=== PATIENT | male | born 2005 | race Caucasian/White ===

== ENCOUNTER 2023-05-17 11:07 | Emergency (ER) | payer SELFPAY ==
[2023-05-17 11:22] VITALS: BP 114/66; PULSE 65; RESP 16; TEMP 36.6; O2SAT 99
--- NOTE | 2023-05-17 11:41 | ED.URI ---
HPI - URI/Sore Throat General Chief Complaint: Upper Respiratory Infection Stated Complaint: Sore throat Time Seen by Provider: 05/17/23 11:39 Source: patient, RN notes reviewed and old records reviewed Mode of arrival: ambulatory Limitations: no limitations History of Present Illness HPI Narrative: 18-year-old male to Express Care for complaint of sore throat, headache, bilateral ear discomfort runny nose for 2 days. Patient denies fever, allergies, pertinent medical history, GI complaints. Related Data Home Medications Medication Instructions Recorded Confirmed No Home Medications 05/17/23 05/17/23 Allergies Allergy/AdvReac Type Severity Reaction Status Date / Time No Known Allergies Allergy Verified 05/17/23 11:21 Review of Systems Review of Systems: All systems reviewed & are unremarkable except as noted in HPI and below Constitutional: Constitutional: Reports as per HPI, Denies fever(s) and Reports headache(s) Eyes: Eyes: Reports no additional eye complaints ENT: Reports as per HPI, Reports otalgia ( Bilateral), Reports headache(s), Reports nasal discharge and Reports sore throat Cardiovascular: Cardiovascular: Reports no additional cardiovascular complaints, Denies chest pain and Denies dyspnea Respiratory: Respiratory: Reports no additional respiratory complaints, Denies cough and Denies dyspnea Musculoskeletal: Musculoskeletal: Reports no additional musculoskeletal complaints Neurologic: Reports system reviewed and no additional complaints, except as documented Psychiatric: Psychiatric: Reports no additional psychiatric complaints PMFSH Comments At the time of my signature, I reviewed and agree with the nursing past medical, surgical, social, and family history. There is no relevant family history pertinent to the patient complaint. Exam Const: General: cooperative, healthy appearing, comfortable, no acute distress, alert and well nourished Nutritional Appearance: well nourished Orientation/consciousness: patient oriented x3 Limitations: no limitations HENMT: Head: normal to inspection Ears: external ears normal and TM abnormal with fluid behind the TM bilateral and diffuse Face/Nose/Sinus: Normal external nose present, Normal nares present, normal facial exam, No erythema and No edema Face and sinus: normal facial exam, no erythema and no edema Mouth: Yes Normal oral and palatal mucosa present Throat: uvula midline, posterior oropharynx abnormal erythema and postnasal drainage Eyes: General: appearance normal, both eyes and all related structures Neck: Neck: normal visual inspection, full ROM and no meningeal signs Lymphatic: no lymphadenopathy noted and no lymphedema noted Chest: Chest palpation & inspection: normal inspection of the chest Resp: Effort & Inspection: normal respiratory effort and able to speak in complete sentences Auscultation: clear to auscultation bilaterally Cardio: Jugular venous distension: no JVD Rate: regular rate Rhythm: regular rhythm Back/Spine/Pelvis: Cervical Spine: cervical ROM normal Skin: General skin exam: normal color, no rashes or lesions noted and turgor normal Neuro: General: patient oriented x3, gait normal, moves all extremities and no meningeal signs Speech: normal speech Gait exam (Neuro): Normal gait present Extrem: General: normal to inspection, full ROM and capillary refill normal Psych: Appearance: grossly normal and well kempt Course Course Emergency Course: Some parts of this dictation were generated by voice recognition software and may contain typographical and/or grammatical inaccuracies. Level of Care: Express Care Visit Vital Signs Vital signs: Vital Signs Temperature 36.6 C 05/17/23 11:22 Pulse Rate 65 05/17/23 11:22 Respiratory Rate 16 05/17/23 11:22 Blood Pressure 114/66 05/17/23 11:22 Pulse Oximetry 99 05/17/23 11:22 Oxygen Delivery Room Air 05/17/23 11:22 Temperature 36.6 C 04/22
[2023-05-17 11:51] LABS: SARS-CoV-2 RNA PCR Negative (Negative)
== END 2023-05-17 12:07 | disposition home or self-care (01) ==
PROVIDERS: Emergency Provider Nurse Practitioner Family
DX: J06.9 Acute upper respiratory infection, unspecified (principal); Z20.822 Contact with and (suspected) exposure to COVID-19
CPT/HCPCS: 87081; 87635; 87804; 87880; 99213; G0463

== ENCOUNTER 2025-02-15 13:35 | Emergency (ER) | payer OTHER, SELFPAY ==
[2025-02-15 13:35] VITALS: BP 148/83; PULSE 64; RESP 18; TEMP 36.6; O2SAT 98
--- NOTE | 2025-02-15 14:23 | ED.ABDPAIN ---
HPI - Abdominal Pain General Chief Complaint: Abdominal Pain Stated Complaint: epigastric pain Time Seen by Provider: 02/15/25 13:51 Source: patient Mode of arrival: ambulatory Limitations: no limitations History of Present Illness HPI narrative: Patient is a 19-year-old male with epigastric pain for the past few days. He has been having this pain on and off however for the past few months. He has been in the ER with a negative workup in the prior past. No associated nausea vomiting or diarrhea. The pain also radiates up the chest. Patient said antacids such as Tums helps. No bleeding from upper or lower. MD elicited complaint: abdominal pain Pertinent past history: none Onset (ago): day(s) (Three) Pain Consistency: intermittent Location: epigastric Severity: moderate Pain scale (0-10): 5 Quality: sharp and burning Radiation: epigastric (Towards the esophagus up to the throat at times) Migration to: epigastric (Upwards towards the esophagus) Exacerbating factors: eating (Patient eats lots of fatty foods and fried foods) and movement Relieving factors: rest Context: confirms history of similar episodes Associated symptoms: nausea Treatments prior to arrival: antacids Related Data Allergies Allergy/AdvReac Type Severity Reaction Status Date / Time No Known Allergies Allergy Verified 02/15/25 15:03 Review of Systems Review of Systems: All systems reviewed & are unremarkable except as noted in HPI and below Constitutional: Constitutional: Reports no additional constitutional complaints Eyes: Eyes: Reports no additional eye complaints ENT: Reports system reviewed and no additional complaints, except as documented Cardiovascular: Cardiovascular: Reports no additional cardiovascular complaints Respiratory: Respiratory: Reports no additional respiratory complaints Gastrointestinal: Gastrointestinal: Reports no additional gastrointestinal complaints Genitourinary: Genitourinary: Reports no additional male genitourinary complaints Musculoskeletal: Musculoskeletal: Reports no additional musculoskeletal complaints Integumentary/Breasts: Skin/Breast: Reports system reviewed and no additional complaints, except as docu Neurologic: Reports system reviewed and no additional complaints, except as documented Psychiatric: Psychiatric: Reports no additional psychiatric complaints Endocrine: Endocrine: Reports no additional endocrine complaints Hematologic/Lymphatic: Hematologic/Lymphatic: Reports no additional hematologic/lymphatic complaints Allergic/Immunologic: Allergic/Immunologic: Reports no additional allergic/immunologic complaints Exam Const: General: healthy appearing Nutritional Appearance: well nourished Orientation/consciousness: patient oriented x3 Limitations: no limitations HENMT: Head: normal to inspection Ears: external ears normal Face/Nose/Sinus: Normal external nose present Eyes: Conjunctivae: conjunctivae normal Pupils: Equal, round and reactive pupils present EOM: EOMs intact bilaterally Neck: Neck: normal visual inspection Chest: Chest palpation & inspection: normal inspection of the chest Resp: Effort & Inspection: normal respiratory effort and not labored Auscultation: clear to auscultation bilaterally and no crackles Cardio: Rate: regular rate Rhythm: regular rhythm Heart sounds: no murmurs GI: Inspection: non-distended GI Palp: Yes Soft to palpation and No Tenderness to palpation present (GI) Auscultation: normal bowel sounds : General: Yes bladder normal to palpation Back/Spine/Pelvis: Back: no CVA tenderness Skin: General skin exam: normal color Rashes: no rashes Wounds: no wounds Neuro: General: patient oriented x3, moves all extremities and no meningeal signs Extrem: General: normal to inspection, no clubbing, cyanosis or edema and no pedal edema Psych: Mental Status: mental status grossly normal Affect: normal affect Attitude: cooperative Course Vital Signs Vital signs: Vital Signs Temperature 36.6 C 02/15/25 13:35 Pulse Rate 64 02/15/25 13:35 Respiratory Rate 18 02/15/25 13:35 Blood Pressure 148/83 H 02/15/25 13:35 Pulse Oximetry 98 02/15/25 13:35 Oxygen Delivery Room Air 02/15/25 13:35 Temperature 37.0 C 02/15/25 15:14 Pulse Rate 69 02/15/25 15:14 Respiratory Rate 20 02/15/25 15:14 Blood Pressure 134/84 02/15/25 15:14 Pulse Oximetry 97 02/15/25 15:14 Oxygen Delivery Room Air 02/15/25 15:[address] [facility] MDM Narrative Medical decision making narrative: Patient is a 19-year-old male with epigastric pain for the past few days and also has had this on and off for a while. He takes Tums which is helpful. Try GI cocktail 1st and if that does not work further workup with CT scan and labs can be done. The GI cocktail worked and mostly resolved all the pain. This litmus test was done to see if a full workup was needed or if this is helpful he needs an upper endoscopy. Gi cocktail was given and it resolved most of the pain. This appears to be gastritis and he needs an upper endoscopy as a complete workup would fail to show anything in the stomach and a direct visualization would be most appropriate for this diagnosis. Differential Diagnosis Differential Diagnosis: Gastritis, pancreatitis Discharge Plan Discharge Clinical Impression: Gastritis Qualifiers: Gastritis type: unspecified gastritis Chronicity: acute Gastritis bleeding: without bleeding Qualified Code(s): K29.00 - Acute gastritis without bleeding Patient Disposition: Home Condition: Stable Instructions: Gastritis (DC) Additional Instructions: Please follow-up with the primary doctor in the next week. Please have upper endoscopy done to look at the inner lining of the stomach. Patient Language: Romanian Prescriptions: New sucralfate [Carafate] 1 gram tablet 1 g PO QID PRN (Reason: pain) Qty: 30 0RF pantoprazole [Protonix] 40 mg tablet,delayed release (DR/EC) 40 mg PO DAILY Qty: 30 0RF Follow-up/Referrals: Gale,MD Kunal [Non-Staff, Unknown]
[2025-02-15] MEDS: MAG HYDROX/ALUMINUM HYD/SIMETH 30 ML, PHENobarb/HYOSCY/ATROPINE/SCOP 32.4 MG, LIDOCAINE... PO (14:27)
[2025-02-15 15:14] VITALS: BP 134/84; PULSE 69; RESP 20; TEMP 37; O2SAT 97
== END 2025-02-15 15:14 | disposition home or self-care (01) ==
PROVIDERS: Emergency Provider Emergency Medicine
DX: K29.00 Acute gastritis without bleeding (principal)
CPT/HCPCS: 99283; A9270